=== PATIENT | female | born 1945 | race Caucasian/White ===

== ENCOUNTER 2018-10-22 15:16 | Inpatient (IN) ==
[2018-10-22 15:25] VITALS: BMI 23.8
--- NOTE | 2018-10-22 15:54 | DR.GENAD ---
HPI Time Seen Time Seen by Provider: 10/22/18 15:53 PCP Primary Care Physician: SALIMA Complaint/Symptoms Chief Complaint:: PT HAS BEEN HURTING IN BACK/LEGS SINCE FIRST OF JUNE.THE PAST TWO WEEKS SHE HAS FALLEN FROM LEFT GIVES AWAY WITH PT. PT TOOK TEMAZPAM AND TRAMADOL THAT IS PRESCRIBED TO HER FOR THE PAIN IN BACK AND LEG. PT FELL DOWN IN HOUSE BEFORE AND AFTER TAKING THEM. Self Treatment fo Chief Complaint: TOOK PRESCRIBED MEDS FROM DOCTOR AND BEEN TO SEE DOCTOR FOR SYMTOMS Nurses notes reviewed Nurses Notes Review: Yes Source History Provided: Patient and Family Member Mode of Arrival Mode of Arrival: Ambulatory Timing Onset of Chief Complaint: 10/22/18 Came on: Suddenly Duration Duration: Constant Severity Severity: Severe PMH PMH Past Medical History: Yes Past Medical History: Anxiety and Arthritis Past Surgical History: Yes Surgical History: Cholecystectomy and Ortho Surgery Family History History of Family Medical Conditions: Yes Family Medical History: Cancer Social History Does any household member use tobacco: No Alcohol Use: None Do you use any recreational Drugs:: No Lives With: Spouse and Family Lives Where: Home infectious screening In the last 2 months have you had wt loss of >10#?: NO Have you had fever, night sweats or hemotysis?: No Have you traveled outside the country in the last 6 months?: No Isolation: Standard PE Vital Signs Vitals: Temperature 97.6 F Pulse Rate 126 Respiratory Rate 18 Blood Pressure 116/77 O2 Sat by Pulse Oximetry 97 ROR Labs Reviewed Result Diagrams: 10/22/18 16:37 10/22/18 16:37 Laboratory: WBC 10.1 X10^3/uL (3.6-10.0) H 10/22/18 16:37 RBC 4.80 X10^6/uL (3.5-5.4) 10/22/18 16:37 Hgb 13.8 g/dL (12.0-16.0) 10/22/18 16:37 Hct 39.8 % (36.0-47.0) 10/22/18 16:37 MCV 82.9 fL (80.0-100.0) 10/22/18 16:37 MCH 28.8 pg (27.0-34.0) 10/22/18 16:37 MCHC 34.8 g/dL (33.0-35.0) 10/22/18 16:37 RDW 14.8 % (11.6-16.5) 10/22/18 16:37 Plt Count 278 X10^3/uL (150.0-450.0) 10/22/18 16:37 MPV 8.1 fL (7.4-11.0) 10/22/18 16:37 Neut % (Auto) 74.0 % (42.0-75.0) 10/22/18 16:37 Lymph % (Auto) 13.0 % (21.0-51.0) L 10/22/18 16:37 [place] % (Auto) 12.1 % (0.0-13.0) 10/22/18 16:37 Eos % (Auto) 0.4 % (0.9-2.9) L 10/22/18 16:37 Baso % (Auto) 0.5 % (0.2-1.0) 10/22/18 16:37 Neut # (Auto) 7.5 x10^3/uL (2.2-4.8) H 10/22/18 16:37 Lymph # (Auto) 1.3 X10^3/uL (1.3-2.9) 10/22/18 16:37 [place] # (Auto) 1.2 x10^3/uL (0.3-0.8) H 10/22/18 16:37 Eos # (Auto) 0.0 x10^3/uL (0.0-0.2) 10/22/18 16:37 Baso # (Auto) 0.0 X10^3/uL (0.0-0.1) 10/22/18 16:37 Absolute Nucleated RBC 0.0 /100WBC 10/22/18 16:37 Sodium 141 mmol/L (136-145) 10/22/18 16:37 Corrected Sodium TNP 10/22/18 16:37 Potassium 2.8 mmol/L (3.5-5.1) L* 10/22/18 16:37 Chloride 101 mmol/L (98-107) 10/22/18 16:37 Carbon Dioxide 23.5 mmol/L (21-32) 10/22/18 16:37 BUN 32 mg/dL (7-18) H 10/22/18 16:37 Creatinine 1.33 mg/dL (0.55-1.02) H 10/22/18 16:37 Est GFR (MDRD) Af Amer 50 (>60) L 10/22/18 16:37 Est GFR (MDRD) Non-Af 42 (>60) L 10/22/18 16:37 Glucose 78 mg/dL (65-99) 10/22/18 16:37 Calcium 14.5 mg/dL (8.5-10.1) H* 10/22/18 16:37 Corrected Calcium 15.1 mg/dL (8.5-10.1) H 10/22/18 16:37 Total Bilirubin 0.80 mg/dL (0.2-1.0) 10/22/18 16:37 AST 50 Units/L (15-37) H 10/22/18 16:37 ALT 11 Units/L (12-78) L 10/22/18 16:37 Alkaline Phosphatase 75 Units/L (46-116) 10/22/18 16:37 Total Protein 6.8 g/dL (6.4-8.2) 10/22/18 16:37 Albumin 3.2 g/dL (3.4-5.0) L 10/22/18 16:37 Globulin 3.6 g/dL (2.5-4.5) 10/22/18 16:37 Albumin/Globulin Ratio 0.9 Ratio (1.1-2.1) L 10/22/18 16:37 Opioid Opioid Risk Tool Total: 0 Total Score Risk Category: Low Risk Copyright: Kg VEGAS predicting aberrant behaviors Instructions Forms: Excuse From Work
[2018-10-22 16:44] LABS: BASOPHILS % (AUTO) 0.5 % (0.2-1.0); EOSINOPHILS % (AUTO) 0.4 % (0.9-2.9); HEMATOCRIT 39.8 % (36.0-47.0); HEMOGLOBIN 13.8 g/dL (12.0-16.0); LYMPHOCYTES # (AUTO) 1.3 X10^3/uL (1.3-2.9); MEAN CORPUSCULAR HEMOGLOBIN 28.8 pg (27.0-34.0); MEAN CORPUSCULAR HGB CONC 34.8 g/dL (33.0-35.0); MEAN CORPUSCULAR VOLUME 82.9 fL (80.0-100.0); MEAN PLATELET VOLUME 8.1 fL (7.4-11.0); MONOCYTES # (AUTO) 1.2 x10^3/uL (0.3-0.8); MONOCYTES % (AUTO) 12.1 % (0.0-13.0); NEUTROPHILS # (AUTO) 7.5 x10^3/uL (2.2-4.8); PLATELET COUNT 278 X10^3/uL (150.0-450.0); RED CELL DISTRIBUTION WIDTH 14.8 % (11.6-16.5); WHITE BLOOD COUNT 10.1 X10^3/uL (3.6-10.0)
[2018-10-22 17:04] LABS: ALANINE AMINOTRANSFERASE 11 Units/L (12-78); ALBUMIN 3.2 g/dL (3.4-5.0); ALKALINE PHOSPHATASE 75 Units/L (46-116); ASPARTATE AMINO TRANSFERASE 50 Units/L (15-37); BLOOD UREA NITROGEN 32 mg/dL (7-18); CARBON DIOXIDE 23.5 mmol/L (21-32); CHLORIDE 101 mmol/L (98-107); COR CA(FOR HYPOALB) 15.1 mg/dL (8.5-10.1); CREATININE 1.33 mg/dL (0.55-1.02); SODIUM 141 mmol/L (136-145); TOTAL PROTEIN 6.8 g/dL (6.4-8.2); eGFR NON BLACK RACES 42 (>60)
[2018-10-22 17:07] LABS: CALCIUM 14.5 mg/dL (8.5-10.1)
--- NOTE | 2018-10-22 17:29 | CT ---
History: Fall and pain Exam: CT scan lumbar spine Comparison: None Technique: Routine axial spiral images were obtained from T11 through the coccyx with coronal and sagittal reconstructions. Automated dose control was utilized. Findings: There is mild disc space narrowing throughout with mild marginal osteophytes. No fracture or subluxation is seen. The vertebral body height is well maintained throughout. There are small central disc bulges at L5-S1 and L2-3. There are moderate central disc bulge at L4-5 and L3-4 . There are moderate hypertrophic changes of the facets throughout with ligament flavum hypertrophy causing mild spinal stenosis along the lower lumbar region . There is presacral soft tissue fullness the lower sacrum and coccyx which otherwise appear intact . The SI joints are symmetric . The neural foramina are patent . The paravertebral soft tissues are normal. IMPRESSION: Mild degenerative disc changes throughout the lumbar spine with no acute abnormality seen. Moderate osteoarthritic changes of the facets causing mild spinal stenosis . Moderate central disc bulges at L3-4 and L4-5 and small central disc bulges at L2-3 and L5-S1. Minimal soft tissue fullness along the presacral region which could be due to prior surgery but is otherwise of uncertain etiology . The sacrum and coccyx otherwise appear intact , recommend clinical follow-up. Reported By:
--- NOTE | 2018-10-22 17:29 | CT ---
CT pelvis without contrast Indication: Multiple falls with pain Comparison: None available Technique: Multiple axial images of the pelvis were obtained from the iliac crest to the proximal thigh without administration of IV contrast. Sagittal and coronal reformats were performed and reviewed. Dose reduction techniques including automated exposure control (AEC) and adjustment of mA and kV were utilized. Findings: There is marked masslike enlargement of the left iliopsoas gluteal, obturator internus muscles which causes mass effect on the left external and internal iliac chains. The adjacent iliac wing demonstrates subtle periosteal reaction, lucency within the cortical bone with more prominent lytic component within the medullary portion of the superior and medial left acetabular wall. Pubic symphysis and SI joints are intact. There is no definite lytic or destructive lesion within the right hemipelvis or visualized lumbar spine. There is approximate 2.4 x 2.4 area of increased density within the right posterolateral urinary bladder at the level of the UVJ insertion on axial image 54. Moderate distal colonic diverticulosis without evidence of acute diverticulitis. There is small amount fluid in stranding within the dependent sacrum. Small fat containing paraumbilical hernia. IMPRESSION: 1.Marked masslike enlargement of the left iliopsoas, gluteal and operate internus muscles with subtle periosteal reaction, cortical destruction within the left ilium with lytic destructive lesion within the medullary portion of the superior and medial acetabular raines. CT findings are suspicious for lymphoma; however metastatic disease should also be considered. Clinical correlation is needed. Surgical consultation and follow-up contrast-enhanced pelvic MRI may be warranted for improved characterization of malignancy. 2. Rounded masslike appearance within the urinary bladder at the level of the right UVJ is suspicious for an underlying bladder mass or less likely hematoma. Attention on follow-up contrast-enhanced pelvic MRI is recommended. 3. No acute fracture or dislocation within the pelvis. Reported By:
[2018-10-22] MEDS ORDERED: ZOFRAN INJ 4 MG VIAL IVP PRN (19:42)
[2018-10-22] MEDS ORDERED: PHARMACY CONSULT - DOSE _____ XX SCH (20:00)
[2018-10-22] MEDS ORDERED: NS 1000 ML 1,000 ML IV SCH (20:00)
[2018-10-22 20:28] LABS: CREATINE KINASE 25 Units/L (26-192); TROPONIN I < 0.02 ng/mL (0-1.5)
[2018-10-22] MEDS ORDERED: ZOFRAN INJ 4 MG VIAL ONE (20:31)
[2018-10-22] MEDS ORDERED: MORPHINE SULFATE INJ 2 MG INJ ONE (20:32)
[2018-10-22] MEDS: MORPHINE SULFATE INJ 2 MG INJ IVP PRN (20:38)
--- NOTE | 2018-10-22 21:36 | RAD ---
History: Fall Exam: Skull series Comparison: None Technique: AP and lateral views of the skull Findings: The bones are well mineralized. No fracture is seen. There is no aggressive osseous lesion. The orbits are intact. IMPRESSION: No acute abnormality seen. Reported By:
[2018-10-22] MEDS ORDERED: NS + KCL 20 MEQ/L 1,000 ML IV ONE (21:43)
[2018-10-22] MEDS ORDERED: K-LYTE EFFERVESCENT PO ONE (21:44)
[2018-10-22] MEDS ORDERED: K-LYTE EFFERVESCENT ONE (21:49)
[2018-10-22] MEDS ORDERED: NS + KCL 40 MEQ/L 1,000 ML IV SCH (22:00)
[2018-10-22] MEDS: LASIX IVP SCH (23:05)
[2018-10-22 23:47] LABS: BILIRUBIN,URINE NEGATIVE (NEGATIVE); BLOOD/HEMOGLOBIN,URINE 1+ (NEGATIVE); GLUCOSE, URINE NEGATIVE (NEGATIVE); KETONES,URINE 2+ (NEGATIVE); LEUKOCYTE ESTERASE ,URINE 1+ (NEGATIVE); NITRITES,URINE NEGATIVE (NEGATIVE); PROTEIN,URINE 2+ (NEGATIVE); UROBILINOGEN,URINE NORMAL (NORMAL)
[2018-10-22 23:49] LABS: APPEARANCE,URINE SLIGHTLY HAZY (CLEAR); COLOR,URINE YELLOW (YELLOW)
[2018-10-22 23:53] LABS: BACTERIA,URINE 3+ /HPF (NEGATIVE); SQUAMOUS EPITHELIAL CELL,UR RARE /HPF (NEGATIVE)
[2018-10-23] MEDS: NS + KCL 20 MEQ/L 1,000 ML IV SCH ×6 (00:29→22:40)
[2018-10-23] MEDS: MAGNESIUM SULFATE 1 GRAM/100 mL PREMIX 1 GM/100 ML BAG IV PRN ×4 (00:29→03:17)
[2018-10-23 02:03] LABS: CKMB % 11.9 % (<4); CREATINE KINASE MB 3.7 ng/mL (0-4.0); TROPONIN I 0.02 ng/mL (0-1.5)
[2018-10-23] MEDS ORDERED: NS 1/2 + KCL 20 MEQ/L 0 ML IV ONE (04:22)
[2018-10-23 07:40] LABS: BASOPHILS # (AUTO) 0.1 X10^3/uL (0.0-0.1); BASOPHILS % (AUTO) 0.5 % (0.2-1.0); EOSINOPHILS # (AUTO) 0.1 x10^3/uL (0.0-0.2); EOSINOPHILS % (AUTO) 0.7 % (0.9-2.9); HEMATOCRIT 37.2 % (36.0-47.0); HEMOGLOBIN 12.8 g/dL (12.0-16.0); LYMPHOCYTES # (AUTO) 1.4 X10^3/uL (1.3-2.9); LYMPHOCYTES % (AUTO) 14.9 % (21.0-51.0); MEAN CORPUSCULAR HEMOGLOBIN 28.9 pg (27.0-34.0); MEAN CORPUSCULAR HGB CONC 34.6 g/dL (33.0-35.0); MEAN CORPUSCULAR VOLUME 83.5 fL (80.0-100.0); MEAN PLATELET VOLUME 8.2 fL (7.4-11.0); MONOCYTES # (AUTO) 1.2 x10^3/uL (0.3-0.8); MONOCYTES % (AUTO) 12.9 % (0.0-13.0); NEUTROPHILS # (AUTO) 6.6 x10^3/uL (2.2-4.8); PLATELET COUNT 250 X10^3/uL (150.0-450.0); RED BLOOD COUNT 4.45 X10^6/uL (3.5-5.4); RED CELL DISTRIBUTION WIDTH 14.9 % (11.6-16.5); WHITE BLOOD COUNT 9.3 X10^3/uL (3.6-10.0)
[2018-10-23 07:59] LABS: ALANINE AMINOTRANSFERASE 7 Units/L (12-78); ALKALINE PHOSPHATASE 70 Units/L (46-116); ASPARTATE AMINO TRANSFERASE 54 Units/L (15-37); BLOOD UREA NITROGEN 26 mg/dL (7-18); CHLORIDE 105 mmol/L (98-107); COR CA(FOR HYPOALB) 13.8 mg/dL (8.5-10.1); CREATININE 1.19 mg/dL (0.55-1.02); MAGNESIUM 2.4 mg/dL (1.7-2.9); SODIUM 142 mmol/L (136-145); TOTAL PROTEIN 6.4 g/dL (6.4-8.2); eGFR NON BLACK RACES 47 (>60)
[2018-10-23 08:07] LABS: CKMB % 10.8 % (<4); CREATINE KINASE MB 3.9 ng/mL (0-4.0); TROPONIN I 0.02 ng/mL (0-1.5)
[2018-10-23] MEDS: LASIX IVP SCH (10:00)
[2018-10-23] MEDS ORDERED: NEURONTIN CAP 300 MG PO PRN (10:57)
[2018-10-23] MEDS ORDERED: AREDIA IV ONE ×2 (11:00)
[2018-10-23] MEDS ORDERED: NS IV ONE ×2 (11:00)
--- NOTE | 2018-10-23 11:08 | DR.H&P ---
H&P - History & Physical for Day of: H&P Date: 10/22/18 - Chief Complaint Chief Complaint: BACK AND LEG PAIN, WEAKNESS - History of Present Illness History of Present Illness: IS A 73 YEAR OLD PATIENT OF OURS WHO PRESENTED TO THE ER WITH COMPLAINTS OF BILATERAL LEG PAIN AND LOWER BACK PAIN FOR THE PAST THREE MONTHS. SHE REPORTS MULTIPLE FALLS FROM HER LEGS GIVING AWAY WITH HER. SHE REPORTS TAKING TEMAZEPAM AND TRAMADOL AT HOME WITHOUT IMPROVEMENT IN SYMPTOMS. ON ARRIVAL TO THE ER, VITALS WERE 97.6-126-18-97%-116/77. LABS WERE OBTAINED. ABNORMAL LAB VALUES INCLUDE THE FOLLOWIN.1, POTASSIUM 2.8, BUN 32, CREATININE 1.33, CALCIUM 14.5, MAGNESIUM 1.2, AST 50, ALT 11, CREATINE KINASE 25, ALUBMIN 3.2. A URINALYSIS WAS OBTAINED AND REVEALED: WBC 10-20, RBC 3-5, BACTERIA 3+, LEUKOCYTES 1+. URINE CULTURE SET UP. A LUMBAR SPINE CT WAS OBTAINED AND REVEALED: Mild degenerative disc changes throughout the lumbar spine with no acute abnormality seen. Moderate osteoarthritic changes of the facets causing mild spinal stenosis. Moderate central disc bulges at L3-4 and L4-5 and small central disc bulges at L2-3 and L5-S1. Minimal soft tissue fullness along the presacral region which could be due to prior surgery but is otherwise of uncertain etiology . The sacrum and coccyx otherwise appear intact , recommend clinical follow-up. A PELVIS CT WAS OBTAINED AND REVEALED: Marked masslike enlargement of the left iliopsoas, gluteal and operate internus muscles with subtle periosteal reaction, cortical destruction within the left ilium with lytic destructive lesion within the medullary portion of the superior and medial acetabular raines. CT findings are suspicious for lymphoma; however metastatic disease should also be considered. Clinical correlation is needed. Surgical consultation and follow-up contrast-enhanced pelvic MRI may be warranted for improved characterization of malignancy. Rounded masslike appearance within the urinary bladder at the level of the right UVJ is suspicious for an underlying bladder mass or less likely hematoma. Attention on follow-up contrast-enhanced pelvic MRI is recommended. No acute fracture or dislocation within the pelvis. A SKULL SERIES WAS OBTAINED AND REVEALED: No acute abnormality seen. AN EKG WAS OBTAINED AND REVEALED: SINUS TACHYCARDIA WITH HR 112. SHE WAS GIVEN NS WITH 20MEQ KCL 1 LITER BOLUS, AND K-LYTE 50MEQ PO X 1 DOSE. SHE WAS ADMITTED TO THE HOSPITAL FOR FURTHER EVALUATION AND TREATMENT OF HYPERCALCEMIA, HYPOKALEMIA, LYTIC BONE LESION, AND BACK AND PELVIC PAIN. WHE WAS STARTED ON NS WITH 20MEQ KCL AT 250ML/HR, MORPHINE 2MG IV Q6H PRN, ZOFRAN 4MG IV Q6H PRN, AND ROCEPHIN 1G IV DAILY. WE PLAN TO FOLLOW UP WITH AM LABS AND CONTINUE TO MONITOR. - Past Medical History Past Medical History: Anxiety, Arthritis - Past Surgical History Surgical History: Cholecystectomy - Family History Family Medical History: Diabetes Mellitus, Cancer, [place], Coronary Artery Disease, Heart Failure, Hypertension - Social History Does any household member use tobacco: No Alcohol Use: None Drug Use: Prescription Drugs - Medications Home Medications: No Known Drug Allergies Allergy (Verified 10/22/18 15:25) CONTINUE taking the following medications alprazolam 1 mg PO HS 10/23/18 [History] atorvastatin 40 mg PO HS 10/23/18 [History] celecoxib 200 mg PO DAILY 10/23/18 [History] citalopram 10 mg PO DAILY 10/23/18 [History] furosemide 20 mg PO DAILY 10/23/18 [History] gabapentin 300 mg PO BID PRN 10/23/18 [History] levothyroxine 75 mcg PO DAILY 10/23/18 [History] potassium chloride 10 meq PO BID 10/23/18 [History] ranitidine HCl 150 mg PO BID 10/23/18 [History] tramadol 50 mg PO QID PRN 10/23/18 [History] triamterene-hydrochlorothiazid 1 tab PO DAILY 10/23/18 [History] - Review of Systems Constitutional: Weakness Eyes: No Symptoms Reported ENT: No Symptoms Reported Respiratory: Shortness of Breath Cardiovascular: Light Headedness Gastrointestinal: Abdominal Pain Genitourinary: Retention Musculoskeletal: Back Pain, Leg Pain Skin: No Symptoms Reported Neurological: Weakness - Physical Exam Vital Signs: Temperature 98.4 F Pulse Rate [Right Brachial] 102 Pulse Rate 109 Respiratory Rate 14 Blood Pressure [Right Arm] 115/57 Blood Pressure 133/59 O2 Sat by Pulse Oximetry 95 Oriented: Normal Eyes: Normal Ear: Normal Nose: Normal Throat: Normal Respiratory: Diminished Throughout Cardiovascular: Normal. negative: S3, S4, Murmur : Normal Auscultation: Bowel Sounds: Normal Palpation: Normal Tenderness: Suprapubic Skin: Normal Musculoskeletal: Back:Lumbar, Pelvis, Tender Psychiatric: Normal Mood Description: Calm Affect: Normal Speech Pattern: Clear - Assessment/Plan (1) Hypercalcemia Status: Acute (2) Urinary tract infection Qualifiers: Urinary tract infection type: site unspecified Hematuria presence: without hematuria Qualified Code(s): N39.0 - Urinary tract infection, site not specified Status: Acute (3) Lytic lesion of bone on x-ray Status: Acute - Allergies Allergies/Adverse Reactions: Allergies Allergy/AdvReac Type Severity Reaction Status Date / Time No Known Drug Allergies Allergy Verified 10/22/18 15:25
[2018-10-23] MEDS: ROCEPHIN VIAL 1 GRAM IVP SCH (11:51)
[2018-10-23] MEDS: SYNTHROID 75 mcg TAB PO SCH (11:51)
[2018-10-23] MEDS: ZANTAC PO SCH ×2 (11:53→20:39)
[2018-10-23] MEDS: CELEBREX PO SCH (11:54)
[2018-10-23] MEDS: CELEXA PO SCH (11:54)
[2018-10-23] MEDS: LOVENOX INJ 40 MG SYR SC SCH (11:55)
[2018-10-23] MEDS: MORPHINE SULFATE INJ 2 MG INJ IVP PRN ×2 (14:23→22:40)
[2018-10-23] MEDS: LIPITOR TAB 40 MG PO SCH (20:21)
[2018-10-23] MEDS: MICRO K EXTEN CAP 10 MEQ PO SCH (20:37)
[2018-10-23] MEDS: XANAX PO SCH (20:38)
[2018-10-23] MEDS: ULTRAM PO PRN (20:38)
[2018-10-24] MEDS: NS + KCL 20 MEQ/L 1,000 ML IV SCH ×5 (03:20→22:32)
[2018-10-24 05:34] LABS: BASOPHILS # (AUTO) 0.1 X10^3/uL (0.0-0.1); BASOPHILS % (AUTO) 1.3 % (0.2-1.0); EOSINOPHILS # (AUTO) 0.1 x10^3/uL (0.0-0.2); EOSINOPHILS % (AUTO) 1.5 % (0.9-2.9); HEMATOCRIT 36.8 % (36.0-47.0); HEMOGLOBIN 12.5 g/dL (12.0-16.0); LYMPHOCYTES # (AUTO) 1.3 X10^3/uL (1.3-2.9); LYMPHOCYTES % (AUTO) 19.9 % (21.0-51.0); MEAN CORPUSCULAR HGB CONC 33.8 g/dL (33.0-35.0); MEAN CORPUSCULAR VOLUME 85.6 fL (80.0-100.0); MEAN PLATELET VOLUME 9.4 fL (7.4-11.0); MONOCYTES # (AUTO) 0.7 x10^3/uL (0.3-0.8); NEUTROPHILS # (AUTO) 4.5 x10^3/uL (2.2-4.8); NEUTROPHILS % (AUTO) 66.3 % (42.0-75.0); PLATELET COUNT 258 X10^3/uL (150.0-450.0); RED CELL DISTRIBUTION WIDTH 15.4 % (11.6-16.5); WHITE BLOOD COUNT 6.7 X10^3/uL (3.6-10.0)
[2018-10-24 05:54] LABS: ALANINE AMINOTRANSFERASE 11 Units/L (12-78); ALKALINE PHOSPHATASE 71 Units/L (46-116); ASPARTATE AMINO TRANSFERASE 51 Units/L (15-37); BLOOD UREA NITROGEN 20 mg/dL (7-18); CALCIUM 11.9 mg/dL (8.5-10.1); CARBON DIOXIDE 22.9 mmol/L (21-32); CHLORIDE 111 mmol/L (98-107); COR CA(FOR HYPOALB) 12.7 mg/dL (8.5-10.1); CREATININE 1.12 mg/dL (0.55-1.02); SODIUM 145 mmol/L (136-145); TOTAL PROTEIN 6.4 g/dL (6.4-8.2); eGFR NON BLACK RACES 51 (>60)
[2018-10-24] MEDS: ROCEPHIN VIAL 1 GRAM IVP SCH (08:32)
--- NOTE | 2018-10-24 09:54 | PCM.PROG ---
Progress Note - Progress Note for Day of Date of Exam: 10/23/18 - Subjective Subjective: WAS ADMITTED FOR HYPERCALCEMIA, HYPOKALEMIA, URINARY TRACT INFECTION, LYTIC BONE LESION, AND BACK/PELVIC PAIN. TODAY, SHE IS ALERT AND ORIENTED, LYING IN BED ON MORNING ROUNDS. SHE CONTINUES WITH PAIN TO THE LOWER BACK AND LEFT PELVIS AREA. SHE ALSO CONTINUE WITH LEG WEAKNESS. ON EXAMINATION, HEART IS REGULAR IN RATE AND RHYTHM. BILATERAL LUNGS ARE NOTED WITH DIMINISHED LUNG SOUNDS THROUGHOUT. ABDOMEN IS ROUND, SOFT, AND NOTED WITH MILD SUPRAPUBIC TENDERNESS. NORMAL BOWEL SOUNDS ARE NOTED IN ALL QUADRANTS. HER VITALS THIS MORNING WERE: 98.4-95-24-96%-116/56. LABS WERE OBTAINED. ABNORMAL LAB VALUES INCLUDE THE FOLLOWING: BUN 26, CREATININE 1.19, CALCIUM 13.0, AST 54, ALT 7, A LBUMIN 3.0. CARDIAC ENZYMES WITHIN NORMAL LIMITS. A URINE CULTURE IS PENDING. SHE IS CURRENTLY RECEIVING NORMAL SALINE WITH 20MEQ KCL AT 250ML/HR, MORPHINE PRN, ZOFRAN PRN, ROCEPHIN 1G IV DAILY. TODAY, WE WILL START AREDIA 60MG IV X 1 DOSE. WE WILL ORDER A CEA LEVEL, BNP, ECHOCARDIOGRAM, AND A MRI OF THE PELVIS WITH CONTRAST. WE WILL ALSO START PROPHYLATIC LOVENOX. OTHERWISE, WE WILL FOLLOW UP WITH AM LABS AND CONTINUE TO MONITOR. - Past Medical Family Social History Past Med/Fam/Surg Hx: No changes since H&P Allergies: Allergies No Known Drug Allergies Allergy (Verified 10/22/18 15:25) - Review of Systems ROS: No change since H&P - Vital Signs and I&O's Vital Signs: Temperature 97.7 F Pulse Rate [Right Brachial] 102 Pulse Rate 97 Respiratory Rate 20 Blood Pressure [Right Arm] 115/57 Blood Pressure 149/79 O2 Sat by Pulse Oximetry 98 Intake and Output: Intake & Output 10/21/18 10/22/18 10/23/18 10/24/18 11:59 11:59 11:59 11:59 Intake Total 3118 / 3118 3942 / 3942 Output Total 2600 / 2600 2700 / 2700 Balance 518 / 518 1242 / 1242 - Physical Exam Oriented: Normal Eyes: Normal Ear: Normal Nose: Normal Throat: Normal Cardiovascular: Normal. negative: S3, S4, Murmur : Normal Auscultation: Bowel Sounds: Normal Palpation: Normal Tenderness: Suprapubic Skin: Normal Musculoskeletal: Back:Lumbar, Pelvis, Tender Psychiatric: Normal Mood Description: Calm Affect: Normal Speech Pattern: Clear, Appropriate - Laboratory and Diagnostics Result Diagrams: 10/24/18 03:55 10/24/18 03:55 Labs: 10/23/18 10:40 Urine,Clean Catch Urine Culture - Preliminary Laboratory WBC 6.7 X10^3/uL (3.6-10.0) 10/24/18 03:55 RBC 4.30 X10^6/uL (3.5-5.4) 10/24/18 03:55 Hgb 12.5 g/dL (12.0-16.0) 10/24/18 03:55 Hct 36.8 % (36.0-47.0) 10/24/18 03:55 MCV 85.6 fL (80.0-100.0) 10/24/18 03:55 MCH 29.0 pg (27.0-34.0) 10/24/18 03:55 MCHC 33.8 g/dL (33.0-35.0) 10/24/18 03:55 RDW 15.4 % (11.6-16.5) 10/24/18 03:55 Plt Count 258 X10^3/uL (150.0-450.0) 10/24/18 03:55 MPV 9.4 fL (7.4-11.0) 10/24/18 03:55 Neut % (Auto) 66.3 % (42.0-75.0) 10/24/18 03:55 Lymph % (Auto) 19.9 % (21.0-51.0) L 10/24/18 03:55 [place] % (Auto) 11.0 % (0.0-13.0) 10/24/18 03:55 Eos % (Auto) 1.5 % (0.9-2.9) 10/24/18 03:55 Baso % (Auto) 1.3 % (0.2-1.0) H 10/24/18 03:55 Neut # (Auto) 4.5 x10^3/uL (2.2-4.8) 10/24/18 03:55 Lymph # (Auto) 1.3 X10^3/uL (1.3-2.9) 10/24/18 03:55 [place] # (Auto) 0.7 x10^3/uL (0.3-0.8) 10/24/18 03:55 Eos # (Auto) 0.1 x10^3/uL (0.0-0.2) 10/24/18 03:55 Baso # (Auto) 0.1 X10^3/uL (0.0-0.1) 10/24/18 03:55 Absolute Nucleated RBC 0.1 /100WBC 10/24/18 03:55 PT 13.8 SECONDS (11.8-14.3) 10/23/18 07:28 INR Target Range - 10/23/18 07:28 INR 1.10 (0.8-1.3) 10/23/18 07:28 APTT 26.8 SECONDS (22.9-36.5) 10/23/18 07:28 PTT Comment - 10/23/18 07:28 Sodium 145 mmol/L (136-145) 10/24/18 03:55 Corrected Sodium TNP 10/24/18 03:55 Potassium 3.6 mmol/L (3.5-5.1) 10/24/18 03:55 Chloride 111 mmol/L (98-107) H 10/24/18 03:55 Carbon Dioxide 22.9 mmol/L (21-32) 10/24/18 03:55 BUN 20 mg/dL (7-18) H 10/24/18 03:55 Creatinine 1.12 mg/dL (0.55-1.02) H 10/24/18 03:55 Est GFR (MDRD) Af Amer > 60 (>60) 10/24/18 03:55 Est GFR (MDRD) Non-Af 51 (>60) L 10/24/18 03:55 Glucose 73 mg/dL (65-99) 10/24/18 03:55 Calcium 11.9 mg/dL (8.5-10.1) H 10/24/18 03:55 Corrected Calcium 12.7 mg/dL (8.5-10.1) H 10/24/18 03:55 Phosphorus 1.8 mg/dL (2.6-4.7) L 10/23/18 07:28 Magnesium 2.4 mg/dL (1.7-2.9) 10/23/18 07:28 Total Bilirubin 0.50 mg/dL (0.2-1.0) 10/24/18 03:55 AST 51 Units/L (15-37) H 10/24/18 03:55 ALT 11 Units/L (12-78) L 10/24/18 03:55 Alkaline Phosphatase 71 Units/L (46-116) 10/24/18 03:55 Creatine Kinase 36 Units/L (26-192) 10/23/18 07:28 CK-MB (CK-2) 3.9 ng/mL (0-4.0) 10/23/18 07:28 CK/CKMB % Calc 10.8 % (<4) 10/23/18 07:28 Troponin I 0.02 ng/mL (0-1.5) 10/23/18 07:28 B-Natriuretic Peptide 161 pg/mL (0-79) H 10/23/18 07:28 Total Protein 6.4 g/dL (6.4-8.2) 10/24/18 03:55 Albumin 3.0 g/dL (3.4-5.0) L 10/24/18 03:55 Globulin 3.4 g/dL (2.5-4.5) 10/24/18 03:55 Albumin/Globulin Ratio 0.9 Ratio (1.1-2.1) L 10/24/18 03:55 Specimen Type Random urine 10/22/18 23:20 Urine Color Yellow (YELLOW) 10/22/18 23:20 Urine Appearance Slightly hazy (CLEAR) 10/22/18 23:20 Urine pH 5.0 (5.0 - 8.0) 10/22/18 23:20 Ur Specific [place] 1.025 (1.000-1.030) 10/22/18 23:20 Urine Protein 2+ (NEGATIVE) 10/22/18 23:20 Urine Glucose (UA) Negative (NEGATIVE) 10/22/18 23:20 Urine Ketones 2+ (NEGATIVE) 10/22/18 23:20 Urine Occult Blood 1+ (NEGATIVE) 10/22/18 23:20 Urine Nitrite Negative (NEGATIVE) 10/22/18 23:20 Urine Bilirubin Negative (NEGATIVE) 10/22/18 23:20 Urine Urobilinogen Normal (NORMAL) 10/22/18 23:20 Ur Leukocyte Esterase 1+ (NEGATIVE) 10/22/18 23:20 Urine RBC 3-5 /HPF (0-3) A 10/22/18 23:20 Urine WBC 10-20 /HPF (0-5) A 10/22/18 23:20 Ur Squamous Epith Cells Rare /HPF (NEGATIVE) 10/22/18 23:20 Urine Bacteria 3+ /HPF (NEGATIVE) 10/22/18 23:20 Ur Culture Indicated? Yes/culture set up 10/22/18 23:20 - Plan (1) Hypercalcemia Status: Acute (2) Urinary tract infection Status: Acute Qualifiers: Urinary tract infection type: site unspecified Hematuria presence: without hematuria Qualified Code(s): N39.0 - Urinary tract infection, site not specified (3) Lytic lesion of bone on x-ray Status: Acute
[2018-10-24] MEDS: LOVENOX INJ 40 MG SYR SC SCH ×2 (10:10→18:08)
[2018-10-24] MEDS ORDERED: KETALAR ONE (12:28)
[2018-10-24] MEDS ORDERED: VERSED ONE (12:28)
[2018-10-24] MEDS ORDERED: DIPRIVAN VIAL ONE (12:28)
[2018-10-24] MEDS: CELEXA PO SCH (18:07)
[2018-10-24] MEDS: CELEBREX PO SCH (18:07)
[2018-10-24] MEDS: MICRO K EXTEN CAP 10 MEQ PO SCH ×2 (18:07→20:23)
[2018-10-24] MEDS: ZANTAC PO SCH ×2 (18:08→20:24)
[2018-10-24] MEDS: SYNTHROID 75 mcg TAB PO SCH (18:08)
[2018-10-24] MEDS: ULTRAM PO PRN (20:22)
[2018-10-24] MEDS: LIPITOR TAB 40 MG PO SCH (20:22)
[2018-10-24] MEDS: XANAX PO SCH (20:23)
--- NOTE | 2018-10-24 20:58 | PCM.PROG ---
Progress Note - Progress Note for Day of Date of Exam: 10/24/18 - Subjective Subjective: WAS ADMITTED FOR HYPERCALCEMIA, HYPOKALEMIA, URINARY TRACT INFECTION, LYTIC BONE LESION, AND BACK/PELVIC PAIN. TODAY, SHE IS ALERT AND ORIENTED, LYING IN BED ON MORNING ROUNDS. SHE CONTINUES WITH PAIN TO THE LOWER BACK AND LEFT PELVIS AREA. SHE ALSO CONTINUE WITH LEG WEAKNESS. ON EXAMINATION, HEART IS REGULAR IN RATE AND RHYTHM. BILATERAL LUNGS ARE NOTED WITH DIMINISHED LUNG SOUNDS THROUGHOUT. ABDOMEN IS ROUND, SOFT, AND NOTED WITH MILD SUPRAPUBIC TENDERNESS. NORMAL BOWEL SOUNDS ARE NOTED IN ALL QUADRANTS. HER VITALS THIS MORNING WERE: 98.8-108-21-98%-145/79. LABS WERE OBTAINED. ABNORMAL LAB VALUES INCLUDE THE FOLLOWING: CHLORIDE 111, BUN 20, CREATININE 1.12, CALCIUM 11.9, AST 51, ALT 11, ALBUMIN 3.0. CARDIAC ENZYMES WITHIN NORMAL LIMITS. A URINE CULTURE IS PENDING. AN ECHO WAS OBTAINED. IT REVEALED AN EJECTION FRACTION OF 57%. SHE IS CURRENTLY RECEIVING NORMAL SALINE WITH 20MEQ KCL AT 250ML/HR, MORPHINE PRN, ZOFRAN PRN, ROCEPHIN 1G IV DAILY. SHE IS SCHEDULE FOR A MRI OF THE PELVIS WITH CONTRAST THIS MORNING. OTHERWISE, WE WILL FOLLOW UP WITH AM LABS AND CONTINUE TO MONITOR. - Past Medical Family Social History Past Med/Fam/Surg Hx: No changes since H&P Allergies: Allergies No Known Drug Allergies Allergy (Verified 10/22/18 15:25) - Review of Systems ROS: No change since H&P - Vital Signs and I&O's Vital Signs: Temperature 98.1 F Pulse Rate [Right Brachial] 102 Pulse Rate 81 Respiratory Rate 24 Blood Pressure [Right Arm] 115/57 Blood Pressure 164/71 O2 Sat by Pulse Oximetry 99 Intake and Output: Intake & Output 10/22/18 10/23/18 10/24/18 10/25/18 11:59 11:59 11:59 11:59 Intake Total 3118 / 3118 3942 / 3942 1780 Output Total 2600 / 2600 2700 / 2700 Balance 518 / 518 1242 / 1242 1780 - Physical Exam Oriented: Normal Eyes: Normal Ear: Normal Nose: Normal Throat: Normal Respiratory: Generalized, Diminished Cardiovascular: Normal. negative: S3, S4, Murmur : Normal Auscultation: Bowel Sounds: Normal Palpation: Normal Tenderness: Suprapubic Skin: Normal Musculoskeletal: Back:Lumbar, Pelvis, Tender Psychiatric: Normal Mood Description: Calm Affect: Normal Speech Pattern: Clear, Appropriate - Laboratory and Diagnostics Result Diagrams: 10/24/18 03:55 10/24/18 03:55 Labs: 10/23/18 10:40 Urine,Clean Catch Urine Culture - Preliminary Laboratory WBC 6.7 X10^3/uL (3.6-10.0) 10/24/18 03:55 RBC 4.30 X10^6/uL (3.5-5.4) 10/24/18 03:55 Hgb 12.5 g/dL (12.0-16.0) 10/24/18 03:55 Hct 36.8 % (36.0-47.0) 10/24/18 03:55 MCV 85.6 fL (80.0-100.0) 10/24/18 03:55 MCH 29.0 pg (27.0-34.0) 10/24/18 03:55 MCHC 33.8 g/dL (33.0-35.0) 10/24/18 03:55 RDW 15.4 % (11.6-16.5) 10/24/18 03:55 Plt Count 258 X10^3/uL (150.0-450.0) 10/24/18 03:55 MPV 9.4 fL (7.4-11.0) 10/24/18 03:55 Neut % (Auto) 66.3 % (42.0-75.0) 10/24/18 03:55 Lymph % (Auto) 19.9 % (21.0-51.0) L 10/24/18 03:55 Orange % (Auto) 11.0 % (0.0-13.0) 10/24/18 03:55 Eos % (Auto) 1.5 % (0.9-2.9) 10/24/18 03:55 Baso % (Auto) 1.3 % (0.2-1.0) H 10/24/18 03:55 Neut # (Auto) 4.5 x10^3/uL (2.2-4.8) 10/24/18 03:55 Lymph # (Auto) 1.3 X10^3/uL (1.3-2.9) 10/24/18 03:55 Orange # (Auto) 0.7 x10^3/uL (0.3-0.8) 10/24/18 03:55 Eos # (Auto) 0.1 x10^3/uL (0.0-0.2) 10/24/18 03:55 Baso # (Auto) 0.1 X10^3/uL (0.0-0.1) 10/24/18 03:55 Absolute Nucleated RBC 0.1 /100WBC 10/24/18 03:55 PT 13.8 SECONDS (11.8-14.3) 10/23/18 07:28 INR Target Range - 10/23/18 07:28 INR 1.10 (0.8-1.3) 10/23/18 07:28 APTT 26.8 SECONDS (22.9-36.5) 10/23/18 07:28 PTT Comment - 10/23/18 07:28 Sodium 145 mmol/L (136-145) 10/24/18 03:55 Corrected Sodium TNP 10/24/18 03:55 Potassium 3.6 mmol/L (3.5-5.1) 10/24/18 03:55 Chloride 111 mmol/L (98-107) H 10/24/18 03:55 Carbon Dioxide 22.9 mmol/L (21-32) 10/24/18 03:55 BUN 20 mg/dL (7-18) H 10/24/18 03:55 Creatinine 1.12 mg/dL (0.55-1.02) H 10/24/18 03:55 Est GFR (MDRD) Af Amer > 60 (>60) 10/24/18 03:55 Est GFR (MDRD) Non-Af 51 (>60) L 10/24/18 03:55 Glucose 73 mg/dL (65-99) 10/24/18 03:55 Calcium 11.9 mg/dL (8.5-10.1) H 10/24/18 03:55 Corrected Calcium 12.7 mg/dL (8.5-10.1) H 10/24/18 03:55 Phosphorus 1.8 mg/dL (2.6-4.7) L 10/23/18 07:28 Magnesium 2.4 mg/dL (1.7-2.9) 10/23/18 07:28 Total Bilirubin 0.50 mg/dL (0.2-1.0) 10/24/18 03:55 AST 51 Units/L (15-37) H 10/24/18 03:55 ALT 11 Units/L (12-78) L 10/24/18 03:55 Alkaline Phosphatase 71 Units/L (46-116) 10/24/18 03:55 Creatine Kinase 36 Units/L (26-192) 10/23/18 07:28 CK-MB (CK-2) 3.9 ng/mL (0-4.0) 10/23/18 07:28 CK/CKMB % Calc 10.8 % (<4) 10/23/18 07:28 Troponin I 0.02 ng/mL (0-1.5) 10/23/18 07:28 B-Natriuretic Peptide 161 pg/mL (0-79) H 10/23/18 07:28 Total Protein 6.4 g/dL (6.4-8.2) 10/24/18 03:55 Albumin 3.0 g/dL (3.4-5.0) L 10/24/18 03:55 Globulin 3.4 g/dL (2.5-4.5) 10/24/18 03:55 Albumin/Globulin Ratio 0.9 Ratio (1.1-2.1) L 10/24/18 03:55 Specimen Type Random urine 10/22/18 23:20 Urine Color Yellow (YELLOW) 10/22/18 23:20 Urine Appearance Slightly hazy (CLEAR) 10/22/18 23:20 Urine pH 5.0 (5.0 - 8.0) 10/22/18 23:20 Ur Specific [place] 1.025 (1.000-1.030) 10/22/18 23:20 Urine Protein 2+ (NEGATIVE) 10/22/18 23:20 Urine Glucose (UA) Negative (NEGATIVE) 10/22/18 23:20 Urine Ketones 2+ (NEGATIVE) 10/22/18 23:20 Urine Occult Blood 1+ (NEGATIVE) 10/22/18 23:20 Urine Nitrite Negative (NEGATIVE) 10/22/18 23:20 Urine Bilirubin Negative (NEGATIVE) 10/22/18 23:20 Urine Urobilinogen Normal (NORMAL) 10/22/18 23:20 Ur Leukocyte Esterase 1+ (NEGATIVE) 10/22/18 23:20 Urine RBC 3-5 /HPF (0-3) A 10/22/18 23:20 Urine WBC 10-20 /HPF (0-5) A 10/22/18 23:20 Ur Squamous Epith Cells Rare /HPF (NEGATIVE) 10/22/18 23:20 Urine Bacteria 3+ /HPF (NEGATIVE) 10/22/18 23:20 Ur Culture Indicated? Yes/culture set up 10/22/18 23:20 - Plan (1) Hypercalcemia Status: Acute Plan: NORMAL SALINE WITH 20MEQ KCL AT 250ML/HR, CONTINUE TO MONITOR (2) Urinary tract infection Status: Acute Qualifiers: Urinary tract infection type: site unspecified Hematuria presence: without hematuria Qualified Code(s): N39.0 - Urinary tract infection, site not specified Plan: ROCEPHIN 1G IV DAILY, CONTINUE TO MONITOR (3) Lytic lesion of bone on x-ray Status: Acute Plan: MRI OF THE PELVIS WITH CONTRAST, CONTINUE TO MONITOR
[2018-10-25] MEDS: MORPHINE SULFATE INJ 2 MG INJ IVP PRN (00:39)
[2018-10-25] MEDS: NS + KCL 20 MEQ/L 1,000 ML IV SCH ×3 (03:06→15:37)
[2018-10-25 05:20] LABS: BASOPHILS # (AUTO) 0.1 X10^3/uL (0.0-0.1); BASOPHILS % (AUTO) 1.1 % (0.2-1.0); EOSINOPHILS # (AUTO) 0.1 x10^3/uL (0.0-0.2); HEMATOCRIT 27.8 % (36.0-47.0); LYMPHOCYTES # (AUTO) 1.3 X10^3/uL (1.3-2.9); LYMPHOCYTES % (AUTO) 18.9 % (21.0-51.0); MEAN CORPUSCULAR HGB CONC 35.1 g/dL (33.0-35.0); MEAN CORPUSCULAR VOLUME 85.6 fL (80.0-100.0); MEAN PLATELET VOLUME 8.5 fL (7.4-11.0); MONOCYTES # (AUTO) 0.7 x10^3/uL (0.3-0.8); NEUTROPHILS # (AUTO) 4.6 x10^3/uL (2.2-4.8); PLATELET COUNT 201 X10^3/uL (150.0-450.0); RED BLOOD COUNT 3.24 X10^6/uL (3.5-5.4); WHITE BLOOD COUNT 6.8 X10^3/uL (3.6-10.0)
[2018-10-25 05:41] LABS: HEMOGLOBIN 9.7 g/dL (12.0-16.0)
[2018-10-25 05:46] LABS: ALANINE AMINOTRANSFERASE 8 Units/L (12-78); ALBUMIN 2.4 g/dL (3.4-5.0); ALKALINE PHOSPHATASE 55 Units/L (46-116); ASPARTATE AMINO TRANSFERASE 41 Units/L (15-37); BLOOD UREA NITROGEN 12 mg/dL (7-18); CALCIUM 9.8 mg/dL (8.5-10.1); CARBON DIOXIDE 20.7 mmol/L (21-32); COR CA(FOR HYPOALB) 11.1 mg/dL (8.5-10.1); CREATININE 0.86 mg/dL (0.55-1.02); SODIUM 145 mmol/L (136-145); eGFR NON BLACK RACES > 60 (>60)
[2018-10-25 05:59] LABS: CHLORIDE 115 mmol/L (98-107)
[2018-10-25] MEDS: ZANTAC PO SCH ×2 (08:25→20:05)
[2018-10-25] MEDS: CELEXA PO SCH (08:25)
[2018-10-25] MEDS: MICRO K EXTEN CAP 10 MEQ PO SCH ×2 (08:25→20:05)
[2018-10-25] MEDS: SYNTHROID 75 mcg TAB PO SCH (08:26)
[2018-10-25] MEDS: LOVENOX INJ 40 MG SYR SC SCH (08:26)
[2018-10-25] MEDS: CELEBREX PO SCH (08:26)
[2018-10-25] MEDS: ROCEPHIN VIAL 1 GRAM IVP SCH (08:27)
--- NOTE | 2018-10-25 09:10 | MRI ---
MR pelvis with and without contrast Indication: Large left pelvic mass and bladder lesion. Technique: Multiplanar multi sequence imaging through the pelvis before and after IV contrast per protocol. 13 cc of MultiHance given IV per protocol. Findings: As seen on the CT, there is large left pelvic mass, which avidly enhances after contrast, encasing the left ischial tuberosity, extending into the left pelvic sidewall and sciatic foramen, and extending on both sides of the iliac bone to the iliac crest. This infiltrates the left SI joint on axial image 27 of series 15 101, and involves the entire ischium/ileum, as well as the left sacrum. Enhancing mass is seen around the left femoral neck and head as well on axial image 61. Enhancing mass seen in the right bladder base as well. Marrow signal abnormality is seen in the left iliac bone and ischium the femur itself appears relatively normal. There is left hip joint effusion. Mild edema seen in the gluteal musculature. Right bladder base lesion measures 2.2 x 2.6 cm on axial image 60. Pelvic mass measures 14.6 x 11.0 x 18.9 cm (AP, trans, cc). Neurovascular structures appear normal Impression: 1. 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 The mass infiltrates the bone, and extends into the left sacrum, also extending into the left SI joint and surrounding the left hip. This is concerning for lymphoma versus metastatic disease. 2. Right bladder base mass. Neoplasm here must be excluded. 3. Extension into the sciatic foramen, with potential encasement or invasion of the sciatic nerve Reported By:
--- NOTE | 2018-10-25 09:56 | RAD ---
HISTORY: Wheezing Study: Single-view chest, done portably Comparison: No priors Findings: Trachea is midline. There is cardiomegaly with aortic uncoiling and very mild pulmonary vascular congestion. No infiltrate, CHF, pleural fluid or pneumothorax is seen. There is no significant hyperinflation. There is a prominent epicardial fat pad seen on the left. Osseous structures are intact. IMPRESSION: Cardiomegaly with mild pulmonary vascular congestion. No infiltrate, CHF, pleural fluid or pneumothorax is seen. There is no significant hyperinflation. Reported By:
[2018-10-25] MEDS ORDERED: LASIX IVP ONE (14:51)
[2018-10-25] MEDS ORDERED: IMODIUM CAP 2 MG PO PRN (15:32)
[2018-10-25] MEDS: ULTRAM PO PRN ×2 (16:00→22:22)
[2018-10-25] MEDS: XANAX PO SCH (20:05)
[2018-10-25] MEDS: LIPITOR TAB 40 MG PO SCH (20:05)
[2018-10-26] MEDS: NS + KCL 20 MEQ/L 1,000 ML IV SCH ×4 (02:31→20:46)
[2018-10-26 05:58] LABS: BASOPHILS # (AUTO) 0.1 X10^3/uL (0.0-0.1); BASOPHILS % (AUTO) 1.5 % (0.2-1.0); EOSINOPHILS # (AUTO) 0.2 x10^3/uL (0.0-0.2); EOSINOPHILS % (AUTO) 2.6 % (0.9-2.9); HEMATOCRIT 32.7 % (36.0-47.0); HEMOGLOBIN 11.2 g/dL (12.0-16.0); LYMPHOCYTES # (AUTO) 1.3 X10^3/uL (1.3-2.9); LYMPHOCYTES % (AUTO) 20.5 % (21.0-51.0); MEAN CORPUSCULAR HEMOGLOBIN 29.1 pg (27.0-34.0); MEAN CORPUSCULAR HGB CONC 34.1 g/dL (33.0-35.0); MEAN CORPUSCULAR VOLUME 85.2 fL (80.0-100.0); MEAN PLATELET VOLUME 9.1 fL (7.4-11.0); MONOCYTES # (AUTO) 0.7 x10^3/uL (0.3-0.8); MONOCYTES % (AUTO) 10.8 % (0.0-13.0); NEUTROPHILS # (AUTO) 4.1 x10^3/uL (2.2-4.8); NEUTROPHILS % (AUTO) 64.6 % (42.0-75.0); PLATELET COUNT 239 X10^3/uL (150.0-450.0); RED BLOOD COUNT 3.83 X10^6/uL (3.5-5.4); RED CELL DISTRIBUTION WIDTH 15.7 % (11.6-16.5); WHITE BLOOD COUNT 6.4 X10^3/uL (3.6-10.0)
[2018-10-26 06:09] LABS: ALANINE AMINOTRANSFERASE 14 Units/L (12-78); ALBUMIN 2.9 g/dL (3.4-5.0); ALKALINE PHOSPHATASE 68 Units/L (46-116); ASPARTATE AMINO TRANSFERASE 46 Units/L (15-37); BLOOD UREA NITROGEN 10 mg/dL (7-18); CALCIUM 10.1 mg/dL (8.5-10.1); CARBON DIOXIDE 24.4 mmol/L (21-32); CHLORIDE 109 mmol/L (98-107); CREATININE 1.01 mg/dL (0.55-1.02); SODIUM 145 mmol/L (136-145); TOTAL PROTEIN 5.9 g/dL (6.4-8.2); eGFR NON BLACK RACES 57 (>60)
[2018-10-26] MEDS ORDERED: POTASSIUM CHL 40 MEQ/NS 0.45% 500 ML IV PRN (06:21)
[2018-10-26] MEDS ORDERED: POTASSIUM CHLORIDE LIQ 20 MEQ UDC PO PRN (06:21)
[2018-10-26] MEDS ORDERED: MICRO K EXTEN CAP 10 MEQ PO PRN (06:21)
[2018-10-26] MEDS ORDERED: POTASSIUM CHL 60 MEQ/NS 0.45% 500 ML IV PRN (06:21)
[2018-10-26] MEDS ORDERED: K-RIDER 10 MEQ/NS 100 ML 10 MEQ/100 ML BAG IV PRN (06:21)
[2018-10-26] MEDS ORDERED: KLOR-CON PO PRN (06:21)
[2018-10-26] MEDS: CELEBREX PO SCH ×2 (06:30→08:37)
[2018-10-26] MEDS: K-DUR TAB 20 MEQ PO PRN ×2 (06:43→17:51)
[2018-10-26] MEDS: MAGNESIUM SULFATE 1 GRAM/100 mL PREMIX 1 GM/100 ML BAG IV PRN ×6 (06:43→13:16)
[2018-10-26] MEDS: ZANTAC PO SCH ×2 (08:00→20:46)
[2018-10-26] MEDS: ROCEPHIN VIAL 1 GRAM IVP SCH (08:00)
[2018-10-26] MEDS: SYNTHROID 75 mcg TAB PO SCH (08:00)
[2018-10-26] MEDS: LOVENOX INJ 40 MG SYR SC SCH (08:01)
[2018-10-26] MEDS: CELEXA PO SCH (08:01)
[2018-10-26] MEDS: ULTRAM PO PRN ×3 (08:35→20:02)
[2018-10-26] MEDS: MICRO K EXTEN CAP 10 MEQ PO SCH ×2 (08:37→20:46)
--- NOTE | 2018-10-26 14:50 | CT ---
HISTORY: Confusion Study: CT brain without contrast Comparison: None Technique: Multiple axial images of the brain were obtained without administration of IV contrast. Dose reduction techniques including Automated Exposure Control (AEC) and adjustment of mA and kV were utilized. Findings: There is cerebral volume loss and nonspecific white matter hypoattenuation likely related to chronic microvascular ischemic changes. No evidence of acute hemorrhage, midline shift, mass effect or abnormal extra-axial fluid collection. The ventricular system is symmetric and nondilated. The soft tissues and osseous structures are unremarkable. There is minimal mucosal thickening in the right maxillary sinus with the remaining paranasal sinuses and mastoid air cells clear. IMPRESSION: 1.No acute intracranial abnormality. Reported By:
[2018-10-26 17:24] LABS: MAGNESIUM 2.7 mg/dL (1.7-2.9)
[2018-10-26] MEDS: LIPITOR TAB 40 MG PO SCH (20:45)
[2018-10-26] MEDS: XANAX PO SCH (20:46)
[2018-10-27] MEDS: ULTRAM PO PRN (02:35)
[2018-10-27] MEDS: NS + KCL 20 MEQ/L 1,000 ML IV SCH (05:03)
[2018-10-27 05:35] LABS: BASOPHILS # (AUTO) 0.1 X10^3/uL (0.0-0.1); BASOPHILS % (AUTO) 1.2 % (0.2-1.0); EOSINOPHILS # (AUTO) 0.2 x10^3/uL (0.0-0.2); EOSINOPHILS % (AUTO) 2.9 % (0.9-2.9); HEMATOCRIT 33.5 % (36.0-47.0); HEMOGLOBIN 11.3 g/dL (12.0-16.0); LYMPHOCYTES # (AUTO) 1.5 X10^3/uL (1.3-2.9); LYMPHOCYTES % (AUTO) 18.9 % (21.0-51.0); MEAN CORPUSCULAR HEMOGLOBIN 28.9 pg (27.0-34.0); MEAN CORPUSCULAR HGB CONC 33.8 g/dL (33.0-35.0); MEAN CORPUSCULAR VOLUME 85.5 fL (80.0-100.0); MEAN PLATELET VOLUME 8.5 fL (7.4-11.0); MONOCYTES # (AUTO) 0.8 x10^3/uL (0.3-0.8); MONOCYTES % (AUTO) 10.5 % (0.0-13.0); NEUTROPHILS # (AUTO) 5.3 x10^3/uL (2.2-4.8); NEUTROPHILS % (AUTO) 66.5 % (42.0-75.0); PLATELET COUNT 247 X10^3/uL (150.0-450.0); RED BLOOD COUNT 3.92 X10^6/uL (3.5-5.4); RED CELL DISTRIBUTION WIDTH 16.2 % (11.6-16.5); WHITE BLOOD COUNT 7.9 X10^3/uL (3.6-10.0)
[2018-10-27 05:59] LABS: ALANINE AMINOTRANSFERASE 14 Units/L (12-78); ALKALINE PHOSPHATASE 81 Units/L (46-116); ASPARTATE AMINO TRANSFERASE 47 Units/L (15-37); BLOOD UREA NITROGEN 7 mg/dL (7-18); CALCIUM 9.1 mg/dL (8.5-10.1); CHLORIDE 109 mmol/L (98-107); COR CA(FOR HYPOALB) 9.9 mg/dL (8.5-10.1); CREATININE 1.05 mg/dL (0.55-1.02); SODIUM 143 mmol/L (136-145); TOTAL PROTEIN 6.1 g/dL (6.4-8.2); eGFR NON BLACK RACES 55 (>60)
[2018-10-27] MEDS: CELEXA PO SCH (08:56)
[2018-10-27] MEDS: LOVENOX INJ 40 MG SYR SC SCH (08:57)
[2018-10-27] MEDS: SYNTHROID 75 mcg TAB PO SCH (08:57)
[2018-10-27] MEDS: ROCEPHIN VIAL 1 GRAM IVP SCH (08:57)
[2018-10-27] MEDS: ZANTAC PO SCH (08:57)
[2018-10-27] MEDS: CELEBREX PO SCH (08:57)
[2018-10-27] MEDS: MICRO K EXTEN CAP 10 MEQ PO SCH (08:57)
[2018-10-27 09:15] VITALS: BP 112/69
== END 2018-10-27 11:25 | disposition home or self-care (01) | DRG 641 ==
LOC: ER 15:16 → ICU 19:38
PROVIDERS: ADMIT Obstetrics & Gynecology Obstetrics; ATTEND Internal Medicine
DX: R19.09 Other intra-abdominal and pelvic swelling, mass and lump; E78.2 Mixed hyperlipidemia; E87.6 Hypokalemia; N32.9 Bladder disorder, unspecified; M19.90 Unspecified osteoarthritis, unspecified site; B96.1 Klebsiella pneumoniae [K. pneumoniae] as the cause of diseases classified elsewhere; N39.0 Urinary tract infection, site not specified; M54.9 Dorsalgia, unspecified; E03.8 Other specified hypothyroidism; R53.1 Weakness; I10 Essential (primary) hypertension; R10.2 Pelvic and perineal pain; M89.9 Disorder of bone, unspecified; R26.89 Other abnormalities of gait and mobility; E83.52 Hypercalcemia; R94.31 Abnormal electrocardiogram [ECG] [EKG]
CPT/HCPCS: 36415; 51701; 70260; 70450; 71010; 71045; 72131; 72192; 72197; 80053; 81001; 82378; 82550; 82553; 83615; 83735; 83880; 84100; 84132; 84484; 85025; 85610; 85730; 87086; 87088; 87186; 93005; 93306; 96365; 96374; 96375; 97110; 97162; 97166; 97535; 99284; A4222; J0696; J1650; J1940; J2250; J2270; J2405; J2430; J2704; J3475; J3490; J7030; J7040; J8499